=== PATIENT | male | born 1940 | race Caucasian/White ===

== ENCOUNTER 2021-02-28 10:23 | Observation (INO) ==
[2021-02-28 11:27] LABS: Hematocrit 37.4 % (37.5-50.1); Hemoglobin 12.6 g/dL (12.9-16.9); Mean Corpuscular HGB Conc 33.7 g/dL (31.6-35.5); Mean Corpuscular Hemoglobin 27.2 pg (28.0-33.3); Mean Corpuscular Volume 80.8 fL (83.0-100.0); Mean Platelet Volume 11.7 fL (9.4-12.4); Platelet Count 281 K/mcL (140-400); Red Blood Count 4.63 M/mcL (4.19-5.50); Red Cell Distribution Width 16.2 % (11.5-14.5); White Blood Count 11.6 K/mcL (4.3-11.1)
[2021-02-28 11:28] LABS: VBG HCO3 21 mEq/L (21-27); VBG PCO2 22 mmHg (41-51); VBG PH 7.58 pH Units (7.32-7.42); VBG PO2 174 mmHg (25-50)
[2021-02-28] MEDS ORDERED: Ondansetron 4 MG/2 ML VIAL IVP ONE (11:38)
[2021-02-28] MEDS ORDERED: 0.9 % Sodium Chloride 1,000 ML IV ONE (11:39)
[2021-02-28 11:45] LABS: INR 1.3; Prothrombin Time 15.1 Seconds (9.4-12.1)
[2021-02-28 11:48] LABS: Acetaminophen < 10 mcg/mL (10-20); Alanine Aminotransferase 139 Units/L (7-52); Albumin 3.4 g/dL (3.5-5.7); Albumin/Globulin Ratio 1.7 (1.1-2.2); Alkaline Phosphatase 370 Units/L (34-104); Aspartate Amino Transferase 159 Units/L (13-39); BUN/Creatinine Ratio 10 (6-26); Bilirubin,Direct 9.6 mg/dL (0.0-0.2); Bilirubin,Indirect 5.5 mg/dL (0.0-1.0); Bilirubin,Total 15.1 mg/dL (0.3-1.0); Blood Urea Nitrogen 15 mg/dL (8-23); Calcium 8.4 mg/dL (8.6-10.3); Carbon Dioxide 23 mEq/L (23-29); Chloride 93 mEq/L (98-107); Ethanol < 10 mg/dL (Less than 10); Glucose 111 mg/dL (70-105); Osmolality,Calculated 268 (280-300); Potassium 3.6 mEq/L (3.5-5.1); Salicylate < 2.5 mg/dL (15.0-30.0); Sodium 128 mEq/L (136-145); Total Protein 5.4 g/dL (6.4-8.9); Troponin I < 0.03 ng/mL (< 0.04); eGFR For African Americans 57 (> 60); eGFR For Non-African Americans 47 (> 60)
[2021-02-28 12:00] LABS: Lipase 126 Units/L (11-82)
[2021-02-28 12:17] LABS: Lymphocytes # 0.9 K/mcL (0.6-4.6); Monocytes # 1.4 K/mcL (0.0-1.3); Neutrophils # 9.3 K/mcL (1.6-8.9); Platelet Estimate Normal (Normal)
[2021-02-28] MEDS ORDERED: Acetaminophen 325 MG TABLET PO PRN (16:01)
[2021-02-28] MEDS ORDERED: Naloxone 0.4 MG/ML INJ IVP PRN (16:01)
[2021-02-28] MEDS ORDERED: Ondansetron 4 MG/2 ML VIAL IVP PRN (16:01)
[2021-02-28] MEDS ORDERED: 0.9 % Sodium Chloride 1,000 ML IVC SCH (16:15)
[2021-02-28] MEDS ORDERED: Cyanocobalamin (B-12) 1,000 MCG TABLET PO SCH (16:15)
[2021-02-28] MEDS: Cholecalciferol (D-3) 1,000 UNIT (25MCG) TABLET PO SCH (18:28)
[2021-02-28] MEDS: *HR* Heparin 5,000 UNIT/ML VIAL SQ SCH ×2 (18:30→20:37)
[2021-03-01 01:18] LABS: Basophils # 0.1 K/mcL (0.0-0.2); Basophils % 0.9 %; Eosinophils % 0.3 %; Hematocrit 34.5 % (37.5-50.1); Hemoglobin 11.8 g/dL (12.9-16.9); Immature Granulocytes % 6.3 % (0-4); Lymphocytes # 0.5 K/mcL (0.6-4.6); Lymphocytes % 5.4 %; Mean Corpuscular HGB Conc 34.2 g/dL (31.6-35.5); Mean Corpuscular Hemoglobin 26.9 pg (28.0-33.3); Mean Corpuscular Volume 78.6 fL (83.0-100.0); Mean Platelet Volume 11.7 fL (9.4-12.4); Monocytes # 1.4 K/mcL (0.0-1.3); Monocytes % 13.8 %; Neutrophils # 7.3 K/mcL (1.6-8.9); Platelet Count 261 K/mcL (140-400); Red Blood Count 4.39 M/mcL (4.19-5.50); Segmented Neutrophils % 73.3 %
[2021-03-01 01:56] LABS: Alanine Aminotransferase 121 Units/L (7-52); Albumin/Globulin Ratio 1.8 (1.1-2.2); Alkaline Phosphatase 328 Units/L (34-104); Aspartate Amino Transferase 131 Units/L (13-39); BUN/Creatinine Ratio 11 (6-26); Bilirubin,Indirect 8.6 mg/dL (0.0-1.0); Bilirubin,Total 15.6 mg/dL (0.3-1.0); Blood Urea Nitrogen 14 mg/dL (8-23); Calcium 7.9 mg/dL (8.6-10.3); Carbon Dioxide 21 mEq/L (23-29); Chloride 97 mEq/L (98-107); Globulin 1.7 g/dL (2.4-3.5); Glucose 90 mg/dL (70-105); Magnesium 1.5 mg/dL (1.6-2.6); Osmolality,Calculated 268 (280-300); Potassium 3.3 mEq/L (3.5-5.1); Sodium 129 mEq/L (136-145); Thyroid Stimulating Hormone 1.148 mcIU/mL (0.340-5.600); Total Protein 4.7 g/dL (6.4-8.9); eGFR For African Americans > 60 (> 60); eGFR For Non-African Americans 52 (> 60)
[2021-03-01 02:40] LABS: Platelet Estimate Normal (Normal)
[2021-03-01] MEDS ORDERED: Magnesium Sulfate 1 GM/102 ML PIGGYBACK IVPB ONE (07:21)
[2021-03-01] MEDS: hydroCHLOROthiazide 25 MG TABLET PO SCH (08:40)
[2021-03-01] MEDS: Folic Acid 1 MG TABLET PO SCH (08:41)
[2021-03-01] MEDS: Magnesium Oxide 400 MG TABLET PO SCH (08:41)
[2021-03-01] MEDS: allopurinoL 300 MG TABLET PO SCH (08:41)
[2021-03-01] MEDS ORDERED: *HR* FentaNYL (PF) 100 MCG/2 ML VIAL ONE ×2 (09:37→12:51)
[2021-03-01] MEDS ORDERED: *HR* Propofol 200 MG/20 ML VIAL IVP ONE (09:37)
[2021-03-01] MEDS ORDERED: Lidocaine HCL 4 ML Topical Solution (Laryng-O-Jet Kit Sterile Pak) TP ONE (09:39)
[2021-03-01] MEDS ORDERED: *HR* Succinylcholine 200 MG/10 ML VIAL IVP ONE (11:03)
[2021-03-01] MEDS ORDERED: *HR* Rocuronium Bromide 50 MG/5 ML VIAL ONE (11:03)
[2021-03-01] MEDS ORDERED: Lidocaine -MPF 2% 5 ML VIAL ONE (11:03)
[2021-03-01] MEDS ORDERED: Ondansetron 4 MG/2 ML VIAL ONE (11:03)
[2021-03-01] MEDS ORDERED: EPHEDrine 50 MG/ML VIAL ONE (11:33)
[2021-03-01] MEDS ORDERED: Perflutren Lipid Microsphere 1.3 ML in 0.9 % Sodium Chloride 8.7 ML IVP PRN (11:55)
[2021-03-01] MEDS ORDERED: Indomethacin 50 MG SUPP.RECT RC ONE (13:51)
[2021-03-01] MEDS ORDERED: Isovue-370 500 ML BOTTLE IVP ONE (16:20)
[2021-03-01] MEDS: *HR* Heparin 5,000 UNIT/ML VIAL SQ SCH (17:17)
[2021-03-02 00:43] LABS: Bilirubin,Urine Large (Negative); Blood,Urine Negative (Negative); Clarity,Urine Clear (Clear); Color,Urine Dark-Yellow (Yellow); Glucose,Urine (UA) Normal (Normal); Ketones,Urine Trace mg/dL (Negative); Leukocyte Esterase,Urine Negative (Negative); Nitrite,Urine Negative (Negative); PH,Urine 6.5 pH Units (5.0-8.0); Protein,Urine Trace mg/dL (Neg-Trace); Specific Gravity,Urine > 1.030 (1.010-1.025)
[2021-03-02 00:52] LABS: Sodium, Urine 70.5 mEq/L
[2021-03-02 00:53] LABS: Amphetamine Screen,Urine Negative ng/mL (Cutoff=1000); Barbiturate Screen,Urine Negative ng/mL (Cutoff=200); Benzodiazepines Screen,Urine Negative ng/mL (Cutoff=200); Cannabinoid Screen,Urine Negative ng/mL (Cutoff = 50); Cocaine Screen,Urine Negative ng/mL (Cutoff= 300); Opiate Screen,Urine Negative ng/mL (Cutoff=300); Phencyclidine Screen,Urine Negative ng/mL (Cutoff=25)
[2021-03-02 02:08] LABS: Basophils # 0.1 K/mcL (0.0-0.2); Basophils % 0.9 %; Hematocrit 33.8 % (37.5-50.1); Hemoglobin 11.3 g/dL (12.9-16.9); Immature Granulocytes % 7.1 % (0-4); Lymphocytes # 0.5 K/mcL (0.6-4.6); Lymphocytes % 3.9 %; Mean Corpuscular HGB Conc 33.4 g/dL (31.6-35.5); Mean Corpuscular Hemoglobin 26.8 pg (28.0-33.3); Mean Corpuscular Volume 80.3 fL (83.0-100.0); Mean Platelet Volume 11.2 fL (9.4-12.4); Monocytes # 0.9 K/mcL (0.0-1.3); Monocytes % 7.7 %; Neutrophils # 9.7 K/mcL (1.6-8.9); Platelet Count 259 K/mcL (140-400); Red Blood Count 4.21 M/mcL (4.19-5.50); Red Cell Distribution Width 16.6 % (11.5-14.5); Segmented Neutrophils % 80.4 %
[2021-03-02 02:28] LABS: Alanine Aminotransferase 108 Units/L (7-52); Albumin/Globulin Ratio 1.6 (1.1-2.2); Alkaline Phosphatase 318 Units/L (34-104); Aspartate Amino Transferase 95 Units/L (13-39); BUN/Creatinine Ratio 12 (6-26); Bilirubin,Direct 9.5 mg/dL (0.0-0.2); Bilirubin,Indirect 5.8 mg/dL (0.0-1.0); Bilirubin,Total 15.3 mg/dL (0.3-1.0); Blood Urea Nitrogen 15 mg/dL (8-23); Calcium 8.2 mg/dL (8.6-10.3); Carbon Dioxide 24 mEq/L (23-29); Chloride 97 mEq/L (98-107); Globulin 1.9 g/dL (2.4-3.5); Glucose 112 mg/dL (70-105); Osmolality,Calculated 272 (280-300); Potassium 3.8 mEq/L (3.5-5.1); Sodium 130 mEq/L (136-145); Total Protein 4.9 g/dL (6.4-8.9); eGFR For African Americans > 60 (> 60); eGFR For Non-African Americans 54 (> 60)
[2021-03-02 02:35] LABS: Platelet Estimate Normal (Normal)
[2021-03-02 03:56] VITALS: PULSE 89
[2021-03-02] MEDS: *HR* Heparin 5,000 UNIT/ML VIAL SQ SCH (03:58)
[2021-03-02 06:40] VITALS: BP 152/85; TEMP 97.4; O2SAT 96
[2021-03-02] MEDS: hydroCHLOROthiazide 25 MG TABLET PO SCH (08:08)
[2021-03-02] MEDS: Magnesium Oxide 400 MG TABLET PO SCH (08:09)
[2021-03-02] MEDS: allopurinoL 300 MG TABLET PO SCH (08:09)
[2021-03-02] MEDS: Folic Acid 1 MG TABLET PO SCH (08:09)
[2021-03-02] MEDS: Cholecalciferol (D-3) 1,000 UNIT (25MCG) TABLET PO SCH (08:32)
== END 2021-03-02 13:33 | disposition home or self-care (01) ==
LOC: 3BNU 10:23 → EMEROOARM 10:23 → SUATTDRO 15:10 → 3BNU 16:15
PROVIDERS: ADMIT Student in an Organized Health Care Education/Training Program; ATTEND Internal Medicine
PROC: ENDOEUS (2021-03-01 11:00)